=== PATIENT | female | born 1960 | race Caucasian/White ===

== ENCOUNTER 2023-08-20 12:48 | Outpatient (RCR) | payer OTHER, SELFPAY | END 2023-09-17 12:18 | disposition home or self-care (01) | LOC: PT 12:48 | PROVIDERS: PCP Family Medicine; Visit Provider Orthopaedic Surgery | DX: Z47.1 Aftercare following joint replacement surgery (principal); Z96.641 Presence of right artificial hip joint | CPT/HCPCS: 97110; 97161 ==